=== PATIENT | male | born 1950 | race Caucasian/White ===

== ENCOUNTER 2018-09-09 08:58 | Emergency (ER) | payer MEDICARE, BC ==
--- OUTSIDE RECORDS SUMMARY | 2018-09-09 09:06 | XMS REPORT | Continuity of Care Document ---
:1950 External Reference #:[id number] Author Name Rossana Jessica Care Team Providers Name Role Phone Halie Sauceda MD Primary Care Physician Unavailable Payers Date Identification Numbers Payment Provider Subscriber Policy Number: [id number] Medicare Yassine S Deepthi PayID: [id number] [address] [place] [address] Expires: 2018 Policy Number: [id number] Medicare Yassine S Deepthi PayID: [id number] [address] [place] [address] Policy Number: [id number] [facility] Yassine S Deepthi PayID: [id number] [address] [place] [address] Effective: 2011 Policy Number: [id number] [employer] Rebekah Deepthi Expires: 2016 PayID: [id number] [address] [address] [place] [address] Expires: 2011 Policy Number: [id number] [employer] [place] Rebekah Deepthi PayID: [id number] [address] [address] [place] [address] Advance Directives Description No Information Available Problems Date Description Provider Status Onset: 09/17/2011 Pure hypercholesterolemia Js Pearson M.D. Active Onset: 09/17/2011 Coronary atherosclerosis Js Pearson M.D. Active Onset: 03/02/2018 Asthma Halie Sauceda M.D. Active Onset: 09/17/2011 Morbid obesity Js Pearson M.D. Resolved Resolved: 01/11/2017 Family History Date Family Member(s) Observation Comments Father due to hip () - April fell/ hip fracture of complications at age 92. Father Chronic Obstructive Pulmonary Disease (COPD) Mother Heart Disease ID in her 70s Mother Congestive Heart Failure (CHF) Siblings 1 sister - Breast with AAA at age 64 Cancer3 brothers alive and well 1 step brother First Brother Lupus First Brother Cancer Blood problem, being watched Second Brother Alive And Well Hip and back issues Third Brother Diabetes Type II Third Brother Hypertension Fourth Brother Aortic Aneurysm abdominal, at age 64 First Sister Breast Cancer First Sister Melanoma : (age Paternal Grandfather due to ID 65 Years) Social History Type Date Description Comments Sex Unknown Marital Status 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 Tobacco Use Start: Unknown End: Former Cigarette Smoker Quit 1976 Unknown Smoking Status Reviewed: 08/25/18 Former Cigarette Smoker Quit 1976 ETOH Use Currently consumes 1 glass red wine alcohol several times weekly Tobacco Use Start: Unknown End: Patient is a former Unknown smoker Exercise Type/Frequency cardio, racket ball 5-6 times weekly Allergies, Adverse Reactions, Alerts Date Description Reaction Status Severity Comments 02/23/2011 Vytorin nausea mylagias Active 05/18/2009 NKDA Inactive Medications Medication Date Status Form Strength Qnty SIG Indications Ordering Provider Shingrix 08/26/19 Active Suspension 50mcg/0.5 2unit 0.5ml Hermelindo 19 Rec ML s wilus JENNIFER Cuba cular, repeat 2-6 months later Lipitor 08/26/19 Active Tablets 20mg 30tab 1 every Js 19 s at night Lizet Pearson M.D. Proair 06/19/19 Active Aerosol 108(90Bas 8.500 2 puffs Saniya Respiclick 19 e) gm by mouth Hill, mcg/Act every M.D. 4-6 hours as needed Aspirin Active Chewtabs 81mg 1 po qd Unknown 00 Multi Complete Active Capsules daily Unknown 00 Breo Ellipta Active Aerosol 100-25mcg 90uni 1 puff Halie 00 / ts inhaled Cotton, daily M.D. Cialis Active Tablets 5mg 90tab 1 by Jeniffer 00 s mouth MD Misael every day Atorvastatin Active Tablets 20mg 90tab take 1 Halie Calcium 00 s tablet Cotton, at M.D. bedtime Amoxicillin/Clav 06/19/19 Hx Tablets 875-125mg 20tab 1 tab by J01.90 Saniya ulanate 19 - s mouth Hill, Potassium 06/29/19 twice a M.D. 19 day Prednisone 06/19/19 Hx Tablets 10mg QS take 3 Saniya 19 - tab Hill, 06/28/19 daily x M.D. 19 3 days then 2 tab daily x 3 days and then 1 tab daily x 3 days Mucinex 06/12/20 Hx Tablets ER 600mg 20tab twice a Christo 16 - 12HR s day as Tonio Pearza, 01/01/20 needed Santo,FACP 17 Zithromax Z-Gary 06/12/20 Hx Tablets 250mg 6tabs two by Christo 16 - mouth Tonio Peraza, 06/17/19 initiall MRody,FACP 17 y then one by mouth daily L'argenie 08/29/19 Hx 2-3 tabs Amanda 13 - daily Varn, N.P. 02/27/20 17 Lipitor 10/17/19 Hx Tablets 20mg 90tab one tab Js 12 - s by mouth Lizet Pearson, Unknown every M.D. night at bedtime Lipitor 10/08/19 Hx Tablets 40mg 90tab 1 po hs Js 12 - s Lizet Pearson, 10/17/19 M.D. 12 Lipitor Hx Tablets 40mg 90tab one tab Unknown 00 - s po qhs 10/08/19 12 Fish Oil Hx Capsules 1000mg 1 po qd Unknown - 08/29/19 13 CQ10 Hx Tablet 200mg 1 tab po Unknown 00 - daily 09/27/19 18 L-Arginine Hx Tablets 500mg 2 daily Unknown - 08/20/19 19 Proair Hx Aerosol 108(90Bas [place], Respiclick 00 - e) Fredo 06/19/19 mcg/Adam Carnes MD 19 Methylprednisolo Hx TBPK 4mg [place], ne Tasneem - Fredo 04/30/20 MD Trice 18 Immunizations CPT Code Status Date Vaccine Reaction Lot # [id number] Given 04/17/2018 Pneumococcal Conjugate Vaccine 13 Valent For Intramuscular Use 49059 Given 03/12/2018 Fluzone High Dose 99846 Given 02/26/2017 Influenza Virus Vaccine, No immediate [id number] Quadrivalent, Split, reaction...jh Preservative Free 65240 Given 05/07/2014 Pneumonia Vaccine 25461 Given 08/28/2012 Zoster (Zostavax) [id number] Given 09/16/1998 Tetanus And Diptheria (Td) For Adult Use Preservative Free Vital Signs Date Vital Result Comment 08/25/2018 9:27am Height 70 inches 5'10" Weight 218.75 lb Heart Rate 75 /min BP Systolic 128 mmHg BP Diastolic 79 mmHg Body Temperature 97.2 F O2 % BldC Oximetry 95 % BMI (Body Mass Index) 31.4 kg/m2 08/20/2018 3:39pm Height 70 inches 5'10" Weight 222.00 lb BP Systolic 140 mmHg large cuff BP Diastolic 90 mmHg large cuff BP Systolic Standing 140 mmHg just worked out BP Diastolic Standing 92 mmHg just worked out BP Systolic Lying Down 139 mmHg la repeat sitting BP Diastolic Lying Down 90 mmHg la repeat sitting Respiratory Rate 14 /min Pain Level 0 BMI (Body Mass Index) 31.9 kg/m2 06/19/2018 8:27am Height 70 inches 5'10" Weight 219.38 lb Heart Rate 84 /min BP Systolic 124 mmHg BP Diastolic 70 mmHg Body Temperature 97.7 F O2 % BldC Oximetry 95 % BMI (Body Mass Index) 31.5 kg/m2 03/03/2018 11:10am Height 70 inches 5'10" Weight 221.00 lb Heart Rate 70 /min BP Systolic Sitting 121 mmHg BP Diastolic Sitting 77 mmHg O2 % BldC Oximetry 96 % BMI (Body Mass Index) 31.7 kg/m2 01/03/2018 9:48am Weight 224.00 lb Heart Rate 78 /min BP Systolic Sitting 144 mmHg BP Diastolic Sitting 76 mmHg Body Temperature 97.4 F O2 % BldC Oximetry 97 % 09/27/2017 8:43am Weight 223.00 lb Heart Rate 69 /min BP Systolic Sitting 130 mmHg BP Diastolic Sitting 95 mmHg Body Temperature 97.2 F O2 % BldC Oximetry 95 % 05/22/2017 8:57am Heart Rate 78 /min Respiratory Rate 18 /min Body Temperature 98.6 F 05/14/2017 10:44am Heart Rate 76 /min BP Systolic 150 mmHg BP Diastolic 100 mmHg Respiratory Rate 16 /min Body Temperature 98.3 F 05/06/2017 2:49pm Height 70 inches 5'10" Weight 213.00 lb Heart Rate 76 /min BP Systolic 138 mmHg BP Diastolic 90 mmHg Respiratory Rate 18 /min Body Temperature 97.8 F BMI (Body Mass Index) 30.6 kg/m2 03/06/2017 11:08am Height 70 inches 5'10" Weight 219.50 lb with shoes Heart Rate 68 /min BP Systolic Sitting 124 mmHg LA reg cuff BP Diastolic Sitting 82 mmHg LA reg cuff BMI (Body Mass Index) 31.5 kg/m2 Ejection Fraction 55% - 60% echo 01/24/17 02/26/2017 11:22am Height 70 inches 5'10" Weight 210.50 lb Heart Rate 68 /min BP Systolic 124 mmHg BP Diastolic 84 mmHg Body Temperature 97.9 F O2 % BldC Oximetry 97 % BMI (Body Mass Index) 30.2 kg/m2 01/01/2017 12:59pm Height 70 inches 5'10" Weight 217.00 lb w/o shoes Heart Rate 68 /min BP Systolic Sitting 144 mmHg LA lrg cuff BP Diastolic Sitting 84 mmHg LA lrg cuff BP Systolic Standing 139 mmHg la repeat sit BP Diastolic Standing 82 mmHg la repeat sit BMI (Body Mass Index) 31.1 kg/m2 Ejection Fraction 53% NLM 10/12/08 06/12/2016 3:15pm Weight 227.00 lb with shoes Heart Rate 103 /min BP Systolic Sitting 134 mmHg BP Diastolic Sitting 76 mmHg Body Temperature 97.4 F O2 % BldC Oximetry 98 % 11/09/2014 2:06pm Height 69 inches 5'9" Weight 216.00 lb w/o shoes Heart Rate 94 /min reg BP Systolic Sitting 108 mmHg Ra, lg cuff BP Diastolic Sitting 78 mmHg Ra, lg cuff BP Systolic Standing 112 mmHg Ra BP Diastolic Standing 80 mmHg Ra Respiratory Rate 18 /min BMI (Body Mass Index) 31.9 kg/m2 11/27/2012 11:37am Height 69 inches 5'9" Weight 211.00 lb Heart Rate 64 /min BP Systolic Sitting 124 mmHg BP Diastolic Sitting 80 mmHg BMI (Body Mass Index) 31.2 kg/m2 08/28/2012 10:08am Height 69 inches 5'9" Weight 214.00 lb Heart Rate 70 /min BP Systolic Sitting 126 mmHg BP Diastolic Sitting 60 mmHg BMI (Body Mass Index) 31.6 kg/m2 09/17/2011 1:52pm Height 70 inches 5'10" Weight 230.00 lb Heart Rate 72 /min BP Systolic 130 mmHg BP Diastolic 82 mmHg Respiratory Rate 16 /min BMI (Body Mass Index) 33.0 kg/m2 10/12/2010 8:52am Height 70 inches 5'10" Weight 230.00 lb Heart Rate 69 /min BP Systolic Sitting 138 mmHg BP Diastolic Sitting 76 mmHg BMI (Body Mass Index) 33.0 kg/m2 05/18/2009 10:15am Height 70 inches 5'10" Weight 234.00 lb Heart Rate 65 /min BP Systolic Sitting 140 mmHg BP Diastolic Sitting 80 mmHg BMI (Body Mass Index) 33.6 kg/m2 Results Test Date Facility Test Result H/L Range Note Laboratory test 05/14/2017 [facility] Surgical SEE RESULT [address] [place] [address] [phone] Laboratory test 04/11/2017 [facility] PSA Screening 1.288 ng/mL N 0-4.000 2 [place] [address] [phone] Basic Metabolic 04/11/2017 [facility] Sodium 138 mmol/L N 133- 145 [place] [address] [phone] Potassium 4.3 mmol/L N 3.5-5.0 Chloride 105 mmol/L N 101-111 Co2 Carbon Dioxide 29 mmol/L N 22-32 Anion Gap 4 mmol/L N 2-11 Glucose 103 mg/dL High 70-100 Blood Urea Nitrogen 18 mg/dL N 6-24 Creatinine 0.84 mg/dL N 0.67-1.17 BUN/Creatinine Ratio 21.4 High 8-20 Calcium 9.3 mg/dL N 8.6-10.3 Egfr Non- 90.9 N >60 Egfr 116.9 N >60 3 Comp Metabolic Panel 09/20/2011 [facility] Sodium 133 mmol/L Low 135-145 [address] [place] [address] [phone] Potassium 4.5 mmol/L 3.5-5.0 Chloride 100 mmol/L Low 101-111 Co2 (Carbon Dioxide) 27.0 mmol/L 22-32 Anion Gap 6.0 mmol/L 2-11 4 Glucose 98 mg/dL 70-100 BUN 16 mg/dL 6-24 Creatinine 0.9 mg/dL 0.50-1.40 One Over Creatinine 1.11 BUN/Creatinine Ratio 17.8 8-20 Calcium 8.9 mg/dL 8.1-9.9 Total Protein 6.8 GM/DL 6.2-8.1 Albumin 4.2 GM/DL 3.2-5.2 Globulin 2.6 GM/DL 2-4 Albumin/Globulin Ratio 1.6 1-3 Bilirubin Total 0.7 mg/dL 0.4-1.5 5 Alkaline Phosphatase 43 U/L 39-117 Alt (SGPT) 34 U/L 17-63 Ast (Sgot) 28 U/L 12-42 eGFR Non- 85.2 > 60 eGFR 109.6 > 60 6 Lipid Panel - 09/20/2011 [facility] CPK (Creatine 204 U/L High 0-[address] Kinase) [place] [address] [phone] Lipid Profile 09/20/2011 [facility] Triglyceride 237 mg/dL High 40-200 (Trig/Chol/HD [address] L) [place] [address] [phone] Cholesterol 188 mg/dL Less Than 200 7 High Density Lipoprotein 40 mg/dL 40-60 8 Cholesterol/HDL Ratio 4.70 AVERAGE 1-4.97 Low Density Lipoprotein 101 mg/dL High Less Than 100 9 CBC Auto Diff 09/20/2011 [facility] White Blood 4.6 CUMM Low 4.8-10.[address] [place] [address] [phone] Red Cell Count 4.60 CUMM 4.6-6.2 Hemoglobin 14.6 g/dL 14.0-18.0 Hematocrit 41 % Low 42-52 Mean Corpuscular Volume 89 um3 80-94 Mean Corpuscular Hemoglob 32 pg High 27-31 Mean Corpuscular HGB Cone 36 g/dL 32-36 Redcell Distribution WDTH 13 % 10.5-15 Platelet Count 197 CUMM 150-450 Mean Platelet Volume 8.1 um3 7.4-10.4 Gran % 54.5 % 38-83 Lymph % 34.3 % 25-47 Mononuclear % 9.2 % High 1-9 Eosinophil % 1.7 % 0-6 Basophil % 0.3 % 0-2 Abs Lymphs 1.6 1.0-4.8 Abs Mononuclear 0.4 0-0.8 Absolute Neutrophil Count 2.5 1.5-7.7 Abs Eosinophils 0.1 0-0.6 Abs Basophils 0 0-0.2 Laboratory test 09/20/2011 [facility] TSH 2.41 MIU/ML 0.34- 5.[address] [place] [address] [phone] CBC Auto Diff 10/25/2010 [facility] White Blood 5.3 CUMM 4.8- 10.[address] [place] [address] [phone] Red Cell Count 4.64 CUMM 4.6-6.2 Hemoglobin 14.3 g/dL 14.0-18.0 Hematocrit 42 % 42-52 Mean Corpuscular Volume 90 um3 80-94 Mean Corpuscular Hemoglob 31 pg 27-31 Mean Corpuscular HGB Cone 34 g/dL 32-36 Redcell Distribution WDTH 13 % 10.5-15 Platelet Count 197 CUMM 150-450 Mean Platelet Volume 8.0 um3 7.4-10.4 Gran % 58.6 % 38-83 Lymph % 31.7 % 25-47 Mononuclear % 7.5 % 1-9 Eosinophil % 1.8 % 0-6 Basophil % 0.4 % 0-2 Abs Lymphs 1.7 1.0-4.8 Abs Mononuclear 0.4 0-0.8 Absolute Neutrophil Count 3.1 1.5-7.7 Abs Eosinophils 0.1 0-0.6 Abs Basophils 0 0-0.2 Comp Metabolic Panel 10/25/2010 [facility] Sodium 138 mmol/L 135-[address] [place] [address] [phone] Potassium 4.2 mmol/L 3.5-5.0 Chloride 106 mmol/L 101-111 Co2 (Carbon Dioxide) 23.0 mmol/L 22-32 Anion Gap 9.0 mmol/L 2-11 10 Glucose 89 mg/dL 70-100 BUN 14 mg/dL 6-24 Creatinine 0.90 mg/dL 0.50-1.40 One Over Creatinine 1.10 BUN/Creatinine Ratio 15.6 8-20 Calcium 9.0 mg/dL 8.1-9.9 Total Protein 6.4 GM/DL 6.2-8.1 Albumin 4.2 GM/DL 3.2-5.2 Globulin 2.2 GM/DL 2-4 Albumin/Globulin Ratio 1.9 1-3 Bilirubin Total 1.1 mg/dL 0.4-1.5 11 Alkaline Phosphatase 46 U/L 39-117 Alt (SGPT) 31 U/L 17-63 Ast (Sgot) 30 U/L 12-42 eGFR Non- 85.5 > 60 eGFR 110.0 > 60 12 Lipid Profile 10/25/2010 [facility] Triglyceride 284 mg/dL High 40-200 (Trig/Chol/HDL) [address] [place] [address] [phone] Cholesterol 170 mg/dL Less Than 200 13 High Density Lipoprotein 41 mg/dL 40-60 14 Cholesterol/HDL Ratio 4.15 AVERAGE 1-4.97 Low Density Lipoprotein 72 mg/dL Less Than 100 15 Laboratory test 10/25/2010 [facility] TSH 2.27 MIU/ML 0.34- 5.60 finding [address] [place] [address] [phone] CBC With Manual 10/18/2008 [facility] White Blood 6.8 CUMM 4.8-10.8 [address] [place] [address] [phone] Red Cell Count 4.66 CUMM 4.6-6.2 Hemoglobin 14.4 g/dL 14.0-18.0 Hematocrit 41 % Low 42-52 Mean Corpuscular Volume 88 um3 80-94 Mean Corpuscular Hemoglob 31 pg 27-31 Mean Corpuscular HGB Cone 35 g/dL 32-36 Redcell Distribution WDTH 13 % 10.5-15 Platelet Count 220 CUMM 150-450 Mean Platelet Volume 7.1 um3 Low 7.4-10.4 Polysegmented Neutrophil 78 % 38-83 Band Neutrophil 4 % 0-8 Lymphocyte 11 % Low 25-47 Monocyte 5 % 0-13 Eosenophil 1 % 0-6 Basophil 1 % 0-2 Absolute Neutrophil Count 5.5 Anisocytosis SLIGHT Protime 10/18/2008 [facility] Protime 11.4 10.9-13.3 [address] [place] [address] [phone] Inr 0.89 17 Laboratory test 10/18/2008 [facility] PTT (Aptt) 23.6 20.1- 28.2 18 finding [address] [place] [address] [phone] Comp Metabolic 10/18/2008 [facility] Sodium 134 mmol/L Low 135 -145 Panel [address] [place] [address] [phone] Potassium 4.3 mmol/L 3.5-5.0 Chloride 101 mmol/L 101-111 Co2 (Carbon Dioxide) 25.0 mmol/L 22-32 Anion Gap 8.0 mmol/L 2-11 19 Glucose 100 mg/dL 70-100 20 BUN 12 mg/dL 6-24 Creatinine 0.90 mg/dL 0.50-1.40 One Over Creatinine 1.10 BUN/Creatinine Ratio 13.3 8-20 Calcium 9.1 mg/dL 8.1-9.9 21 Total Protein 6.0 GM/DL Low 6.2-8.1 Albumin 3.8 GM/DL 3.2-5.2 Globulin 2.2 GM/DL 2-4 Albumin/Globulin Ratio 1.7 1-3 Bilirubin Total 0.7 mg/dL 0.4-1.5 Alkaline Phosphatase 53 U/L 39-117 Alt (SGPT) 33 U/L 17-63 Ast (Sgot) 27 U/L 12-42 1 SEE RESULT BELOW Name: YASSINE HACKETT : [address]: Ivelisse Lindquist MD Acct: [id number] Unit: [id number] AGE: 66 Location: [facility] Re05/14/17 SEX: M Status: REG REF SPEC: [id number] RACH: 05/14/17-1408 [facility] DR: Ivelisse Lindquist MD REQ: [id number] RECD: 05/14/17 STATUS: SOUT _ ORDERED: LEVEL 3 COMMENTS: [id number] FINAL DIAGNOSIS Posterior neck, excision: -- Lipoma. CLINICAL HISTORY No history given PRE-OPERATIVE DIAGNOSIS GROSS DESCRIPTION The specimen is received in formalin labeled, Posterior Neck Mass, and consists of a 2.0 x 1.9 x 1.0 cm yellow-forbes irregular shaggy rubbery adipose tissue fragment. The cut surface consists of pale yellow lobulated adipose tissue with a small amount of diaz- white fibrous tissue. The specimen is inked, serially sectioned and entirely submitted in three cassettes. Signed (signature on file) Kinjal Neil MD 07/03 1128 END OF REPORT * ML=Testing performed at Main Lab DEPARTMENT OF PATHOLOGY, [address] [place] [address] Kar Medina M.D. Director [facility] # [id number] 2 Serum levels of PSA measured using the Arti Wavestream DXI Hybritech immunoassay should not be interpreted as absolute evidence of the presence or absence of disease. The PSA value should be used in conjunction with other pertinent clinical diagnostic procedures. The values obtained with different assay methods or kits cannot be used interchangeably. 3 Because ethnic data is not always readily available, this report includes an eGFR for both -Americans and non- Americans. The National Kidney Disease Education Program (NKDEP) does not endorse the use of the MDRD equation for patients that are not between the ages of 18 and 70, are , have extremes of body size, muscle mass, or nutritional status, or are non- or non-. According to the National Kidney Foundation, irrespective of diagnosis, the stage of the disease is based on the level of kidney function: Stage Description GFR(mL/min/1.73 m(2)) 1 Kidney damage with normal or decreased GFR 90 2 Kidney damage with mild decrease in GFR 60-89 3 Moderate decrease in GFR 30-59 4 Severe decrease in GFR 15-29 5 Kidney failure <15 (or dialysis) 4 Anion gap measurement may be of limited value in the presence of any alkalosis, especially in a combined acid base disorder. . 5 A metabolite of Naproxen, O-desmethylnaproxen, has been shown to interfere with the Jendrassik-Ramírez method for measuring total bilirubin. Samples from patients who have taken Naproxen have shown spurious elevation in total bilirubin levels. 6 Because ethnic data is not always readily available, this report includes an eGFR for both -Americans and non- Americans. The National Kidney Disease Education Program (NKDEP) does not endorse the use of the MDRD equation for patients that are not between the ages of 18 and 70, are , have extremes of body size, muscle mass, or nutritional status, or are non- or non-. According to the National Kidney Foundation, irrespective of diagnosis, the stage of the disease is based on the level of kidney function: Stage Description GFR(mL/min/1.73 m(2)) 1 Kidney damage with normal or decreased GFR 90 2 Kidney damage with mild decrease in GFR 60-89 3 Moderate decrease in GFR 30-59 4 Severe decrease in GFR 15-29 5 Kidney failure <15 (or dialysis) 7 CHOLESTEROL INTERPRETATION: Desirable: Less than 200 MG/DL Borderline-High Risk: 200-239 MG/DL High-Risk: 240 MG/DL and over 8 HDL INTERPRETATION: Undesirable: High Risk: Less than 40 MG/DL Desirable: Low Risk: Greater than 60 MG/DL 9 LDL INTERPRETATION: Low Risk Optimal Level: LDL Less than 100 MG/DL Near or Above Optimal: LDL 100-129 MG/DL Borderline High Risk: LDL 130-159 MG/DL High Risk: LDL 160-189 MG/DL Very High Risk: LDL Greater than 189 MG/DL 10 Anion gap measurement may be of limited value in the presence of any alkalosis, especially in a combined acid base disorder. . 11 A metabolite of Naproxen, O-desmethylnaproxen, has been shown to interfere with the Jendrassik-Ramírez method for measuring total bilirubin. Samples from patients who have taken Naproxen have shown spurious elevation in total bilirubin levels. 12 Because ethnic data is not always readily available, this report includes an eGFR for both -Americans and non- Americans. The National Kidney Disease Education Program (NKDEP) does not endorse the use of the MDRD equation for patients that are not between the ages of 18 and 70, are , have extremes of body size, muscle mass, or nutritional status, or are non- or non-. According to the National Kidney Foundation, irrespective of diagnosis, the stage of the disease is based on the level of kidney function: Stage Description GFR(mL/min/1.73 m(2)) 1 Kidney damage with normal or decreased GFR 90 2 Kidney damage with mild decrease in GFR 60-89 3 Moderate decrease in GFR 30-59 4 Severe decrease in GFR 15-29 5 Kidney failure <15 (or dialysis) 13 CHOLESTEROL INTERPRETATION: Desirable: Less than 200 MG/DL Borderline-High Risk: 200-239 MG/DL High-Risk: 240 MG/DL and over 14 HDL INTERPRETATION: Undesirable: High Risk: Less than 40 MG/DL Desirable: Low Risk: Greater than 60 MG/DL 15 LDL INTERPRETATION: Low Risk Optimal Level: LDL Less than 100 MG/DL Near or Above Optimal: LDL 100-129 MG/DL Borderline High Risk: LDL 130-159 MG/DL High Risk: LDL 160-189 MG/DL Very High Risk: LDL Greater than 189 MG/DL 16 FAX RESULTS TO [facility] [employer] OPERATOR AT FAX NUMBER [phone] 17 [place] VALUE=2.01 ( OF 05/23/07 Recommended INR for Patients on Oral Anticoagulants Prophylaxis 2.0 - 3.0 Treatment of thrombosis 2.0 - 3.0 Prevention of embolism 2.0 - 3.0 Prevention of embolism from prosthetic heart valves 2.5 - 3.5 18 PLEASE NOTE NEW REFERENCE RANGE EFFECTIVE 07. 19 Anion gap measurement may be of limited value in the presence of any alkalosis, especially in a combined acid base disorder. . 20 Note change in reference range as of 02/05/08. The change was based on recommendations from the [place] [employer]. 21 Please note change in reference range effective 07 . Procedures Date Code Description Status 08/20/2018 66437 EKG Tracing & Interpretation Completed 07/03/2018 602233466 Diabetic Retinal Eye Exam Completed 05/14/2017 86719 Exc Tumors/Soft Tissue Neck Subcutaneous Completed 03/06/2017 27336 EKG Tracing & Interpretation Completed 01/24/2017 25263 ECHO Transthoracic, Real-Time 2D With Doppler And Completed Color Flow 01/11/2017 02770 Stress Test Supervsn W/Out I/R Completed 01/11/2017 72307 Treadmill Interp/Report Only Completed 01/01/2017 61475 EKG Tracing & Interpretation Completed 05/27/2015 63751116 Colonoscopy Completed 11/09/2014 75824 EKG Tracing & Interpretation Completed 11/27/2012 19568 EKG Tracing & Interpretation Completed 09/17/2011 67742 EKG Tracing & Interpretation Completed 02/23/2011 22058 ECHO Stress Test Incl Perf Contiuous ekg Monitoring Completed W/Phys Superv 10/12/2010 05844 EKG Tracing & Interpretation Completed 05/18/2009 29946 EKG Tracing & Interpretation Completed 10/12/2008 09190 Treadmill Interp/Report Only Completed 10/12/2008 51784 Stress Test Supervsn W/Out I/R Completed 05/19/2008 57899 ECHO/Stress Completed 05/19/2008 39856 ECHO/Stress Completed 05/19/2008 73784 Stress Test Completed 11/09/2005 16064 EKG, Interpretation Only Completed Encounters Type Date Location Provider Dx Diagnosis Office Visit 08/20/2018 [facility]. E78.5 Hyperlipidemia , 3:40p Santo Pearson unspecified R03.0 Elevated blood-pressure reading, w/o diagnosis of htn I25.10 Athscl heart disease of [place] coronary artery w/o ang pctrs Office Visit 06/19/2018 8:30a [facility] Internal Saniya J45.31 Mild persistent Medicine - [place] asthma with [place] (acute) exacerbation J01.90 Acute sinusitis, unspecified Office Visit 01/03/2018 9:40a [facility] Internal Halie Sauceda, M25.551 Pain in Medicine - M.D. right hip [place] H92.01 Otalgia, right ear E78.5 Hyperlipidemia, unspecified Office Visit 09/27/2017 8:40a [facility] Internal Hermelindo Cuba NP I83.812 Varicose veins Medicine - of left lower [place] extremity with pain Office Visit 05/06/2017 3:00p Surgical Ivelisse Kelvin D17.0 [facility] MD Lexa neoplm of skin, subcu of head, face and neck Office Visit 03/06/2017 11:20a [facility] Js Hinds I25.10 Athscl heart Santo Pearson disease of [place] coronary artery w/o fina bryantrs R06.00 Dyspnea, unspecified E78.00 Pure hypercholesterolemia, unspecified Z01.810 Encounter for preprocedural cardiovascular examination Office 01/01/2017 Giuseppe Hinds E78.00 Pure Visit 1:20p Cardiology Santo Pearson hypercholesterolemia, unspecified I25.10 Athscl heart disease of [place] coronary artery w/o ang pctrs R06.02 Shortness of breath Office Visit 06/12/2016 3:20p [facility] Internal Christo Elizalde J20.9 Acute bronchitis, Medicine - Santo Peraza,FACP unspecified [place] E78.00 Pure hypercholesterolemia, unspecified Office 11/09/2014 Adán Hinds 272.0 Hypercholesterolemia Pure Visit 2:20p Cardiology Nicole Pearson M.D. Dry Heat Room Attendant 414.01 Coronary Atherosclerosis [place] Office 11/27/2012 Giuseppe Hinds 272.0 Hypercholesterolemia Pure Visit 11:40a Cardiology Mauser, M.D. 278.00 Obesity Unspec 414.01 Coronary Atherosclerosis [place] Office 08/28/2012 [facility] Internal Amanda V04.89 Need For Prophylactic Visit 10:20a Medicine - Martina NDesmond Vaccination & [place] Inoculation Other Virus Office 09/17/2011 Giuseppe Hinds 272.0 Hypercholesterolemia Visit 2:00p Cardiology ELIZABETH Pearson M.D. Pure [facility] 278.01 Obesity Morbid 414.0 Coronary Atherosclerosis Office 10/12/2010 [place] Js Hinds 272.0 Hypercholesterolemia Pure Visit 9:00a Cardiology Santo Pearson 278.01 Obesity Morbid 786.50 Pain Chest Unspec 414.0 Coronary Atherosclerosis Office Visit 05/18/2009 10:00a [facility] Js Hinds 786.50 Pain Chest Santo Pearson Unspec 272.0 Hypercholesterolemia Pure 278.01 Obesity Morbid 414.0 Coronary Atherosclerosis Office Visit 10/12/2008 11:00a [place] Randa Hinds 786.50 Pain Chest Santo Pearson Unspec 272.0 Hypercholesterolemia Pure 278.01 Obesity Morbid Plan of Treatment 08/25/2018 - Hermelindo Cuba, NPZ01.818 Encounter for other preprocedural examinationNew Labs:CBC Auto Diff, Ordered: 08/25/18Basic Metabolic Panel, Ordered: 08/25/18Urine Culture And Sensitivities, Ordered: 08/25/18Comments:As long as your labs are normal I do not see any contraindications to your surgery.You should avoid aspirin, NSAIDs (ibuprofen, Motrin, aleve) and supplements 7 days prior to the procedure.M25.562 Pain in left kneeI25.10 Atherosclerotic heart disease of [place] coronary artery withJ45.30 Mild persistent asthma, uncomplicated
--- OUTSIDE RECORDS SUMMARY | 2018-09-09 09:06 | XMS REPORT | Continuity of Care Document ---
:1950 External Reference #:[id number] Author Name Mag Citlaligie Care Team Providers Name Role Phone Halie Sauceda MD Primary Care Physician Unavailable Payers Date Identification Numbers Payment Provider Subscriber Policy Number: [id number] Medicare Yassine S Deepthi PayID: [id number] [address] [place] [address] Expires: 2018 Policy Number: [id number] Medicare Yassine S Deepthi PayID: [id number] [address] [place] [address] Policy Number: [id number] [facility] Yassine S Deepthi PayID: [id number] [address] [place] [address] Effective: 2011 Policy Number: [id number] [employer] Rebekah Deepthi Expires: 2016 PayID: [id number] [address] [address] CULL[place] Martinez [address] Expires: 2011 Policy Number: [id number] [employer] [place] Rebekah Deepthi PayID: [id number] [address] [address] MichelleCULLEN britton [address] Advance Directives Description No Information Available Problems Date Description Provider Status Onset: 09/17/2011 Pure hypercholesterolemia Js Pearson M.D. Active Onset: 09/17/2011 Coronary atherosclerosis Js Pearson M.D. Active Onset: 03/02/2018 Asthma Halie Sauceda M.D. Active Onset: 09/17/2011 Morbid obesity Js Pearson M.D. Resolved Resolved: 01/11/2017 Family History Date Family Member(s) Observation Comments Father Chronic Obstructive Pulmonary Disease (COPD) Mother Heart Disease [place] in her 70s Mother Congestive Heart Failure (CHF) Siblings 1 sister - Breast Cancer3 with AAA at age 64 brothers alive and well 1 step brother First Brother Lupus First Brother Cancer Blood problem, being watched Second Brother Alive And Well Hip and back issues Third Brother Diabetes Type II Third Brother Hypertension Fourth Brother Aortic Aneurysm abdominal, at age 64 First Sister Breast Cancer First Sister Melanoma : (age 65 Paternal Grandfather due to [place] Years) Social History Type Date Description Comments Sex Unknown Marital Status 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 Tobacco Use Start: Unknown End: Former Cigarette Smoker Quit 1976 Unknown Smoking Status Reviewed: 06/19/18 Former Cigarette Smoker Quit 1976 ETOH Use Currently consumes 1 glass red wine alcohol daily Tobacco Use Start: Unknown End: Patient is a former Unknown smoker Exercise Type/Frequency cardio, racket ball 5-6 times weekly Allergies, Adverse Reactions, Alerts Date Description Reaction Status Severity Comments 02/23/2011 Vytorin nausea mylagias Active 05/18/2009 NKDA Inactive Medications Medication Date Status Form Strength Qnty SIG Indications Ordering Provider Proair 06/19/19 Active Aerosol 108(90Bas 8.500 2 puffs J45.31 Saniya Respiclick 19 e) gm by mouth Hill, mcg/Act every 4-6 M.D. hours as needed Aspirin Active Chewtabs 81mg 1 po qd Unknown 00 Multi Complete Active Capsules daily Unknown 00 Breo Ellipta Active Aerosol 100-25mcg 90uni 1 puff Halie 00 /Inh ts inhaled Cotton, daily M.D. Cialis Active Tablets 5mg 90tab 1 by Jeniffer 00 s mouth MD Misael every day Atorvastatin Active Tablets 20mg 90tab take 1 Halie Calcium 00 s tablet at Cotton, bedtime M.D. Amoxicillin/Clav 06/19/19 Hx Tablets 875-125mg 20tab 1 tab by J01.90 Saniya ulanate 19 - s mouth Hill, Potassium 06/29/19 twice a M.D. 19 day Prednisone 06/19/19 Hx Tablets 10mg QS take 3 J45.31 Saniya 19 - tab daily Hill, 06/28/19 x 3 days M.D. 19 then 2 tab daily x 3 days and then 1 tab daily x 3 days Mucinex 06/12/20 Hx Tablets 600mg 20tab twice a Christo 16 - ER 12HR s day as Tonio Peraza, 01/01/20 needed Santo,FACP 17 Zithromax Z-Gary 06/12/20 Hx Tablets 250mg 6tabs two by Christo 16 - mouth Tonio Peraza, 06/17/19 initially M.Tonio,FACP 17 then one by mouth daily L'argenie 08/29/19 [...] [place], Respiclick 00 - e) Fredo 06/19/19 mcg/Act MD Trice 19 Methylprednisolo Hx TBPK 4mg [place], ne 00 - Fredo 04/30/20 MD Trice 18 Immunizations CPT Code Status Date Vaccine Reaction Lot # [id number] Given 04/17/2018 Pneumococcal Conjugate Vaccine 13 Valent For Intramuscular Use 96029 Given 03/12/2018 Fluzone High Dose 85864 Given 02/26/2017 Influenza Virus Vaccine, No immediate [id number] Quadrivalent, Split, reaction...jh Preservative Free 25516 Given 05/07/2014 Pneumonia Vaccine 69459 Given 08/28/2012 Zoster (Zostavax) [id number] 13921 Given 09/16/1998 Tetanus And Diptheria (Td) For Adult Use Preservative Free Vital Signs Date Vital Result Comment 08/20/2018 3:39pm Height 70 inches 5'10" Weight [...] Result H/L Range Note Laboratory test 05/14/2017 [facility] Surgical SEE RESULT [address] [place] [address] [phone] Laboratory test 04/11/2017 [facility] PSA Screening 1.288 ng/mL N 0-4.000 [address] [place] [address] [phone] Basic Metabolic 04/11/2017 [facility] Sodium 138 mmol/L N 133- [address] [place] [address] [phone] Potassium 4.3 mmol/L N 3.5-5.0 Chloride 105 mmol/L N 101-111 Co2 Carbon Dioxide 29 mmol/L N 22-32 Anion Gap 4 mmol/L N 2-11 Glucose 103 mg/dL High 70-100 Blood Urea Nitrogen 18 mg/dL N 6-24 Creatinine 0.84 mg/dL N 0.67-1.17 BUN/Creatinine Ratio 21.4 High 8-20 Calcium 9.3 mg/dL N 8.6-10.3 Egfr Non- 90.9 N >60 Egfr 116.9 N >60 3 CBC Auto Diff 09/20/2011 [facility] White Blood 4.6 CUMM Low 4.8-10.[address] [place] [address] [phone] Red Cell Count 4.60 CUMM 4.6-6.2 Hemoglobin [...] Abs Basophils 0 0-0.2 Laboratory test 09/20/2011 [facility] TSH 2.41 0.34-5.[address] MIU/[place] [address] [phone] Lipid Profile 09/20/2011 [facility] Triglyceride 237 mg/dL High 40-200 (Trig/Chol/HDL) [address] [place] [address] [phone] Cholesterol 188 mg/dL Less Than 200 4 High Density Lipoprotein 40 mg/dL 40-60 5 Cholesterol/HDL Ratio 4.70 AVERAGE 1-4.97 Low Density Lipoprotein 101 mg/dL High Less Than 100 6 Lipid Panel - 09/20/2011 [facility] CPK (Creatine 204 U/L High 0-[address] Kinase) [place] [address] [phone] Comp Metabolic 09/20/2011 [facility] Sodium 133 Low 135-[address] mmol/[place] [address] [phone] Potassium 4.5 mmol/L 3.5-5.0 Chloride 100 mmol/L Low 101-111 Co2 (Carbon Dioxide) 27.0 mmol/L 22-32 Anion Gap 6.0 mmol/L 2-11 7 Glucose 98 mg/dL 70-100 BUN 16 mg/dL 6-24 Creatinine 0.9 mg/dL 0.50-1.40 One Over Creatinine 1.11 BUN/Creatinine Ratio 17.8 8-20 Calcium 8.9 mg/dL 8.1-9.9 Total Protein 6.8 GM/DL 6.2-8.1 Albumin 4.2 GM/DL 3.2-5.2 Globulin 2.6 GM/DL 2-4 Albumin/Globulin Ratio 1.6 1-3 Bilirubin Total 0.7 mg/dL 0.4-1.5 8 Alkaline Phosphatase 43 U/L 39-117 Alt (SGPT) 34 U/L 17-63 Ast (Sgot) 28 U/L 12-42 eGFR Non- 85.2 > 60 eGFR 109.6 > 60 9 Laboratory test 10/25/2010 [facility] TSH 2.27 0.34-5.60 finding 101 MIU[address] [address] [phone] Lipid Profile 10/25/2010 [facility] Triglyceride 284 mg/dL High 40-200 (Trig/Chol/HDL) [address] [place] [address] [phone] Cholesterol 170 mg/dL Less Than 200 10 High Density Lipoprotein 41 mg/dL 40-60 11 Cholesterol/HDL Ratio 4.15 AVERAGE 1-4.97 Low Density Lipoprotein 72 mg/dL Less Than 100 12 Comp Metabolic Panel 10/25/2010 [facility] Sodium 138 mmol/L 135-[address] [place] [address] [phone] Potassium 4.2 mmol/L 3.5-5.0 Chloride 106 mmol/L 101-111 Co2 (Carbon Dioxide) 23.0 mmol/L 22-32 Anion Gap 9.0 mmol/L 2-11 13 Glucose 89 mg/dL 70-100 BUN 14 mg/dL 6-24 Creatinine 0.90 mg/dL 0.50-1.40 One Over Creatinine 1.10 BUN/Creatinine Ratio 15.6 8-20 Calcium 9.0 mg/dL 8.1-9.9 Total Protein 6.4 GM/DL 6.2-8.1 Albumin 4.2 GM/DL 3.2-5.2 Globulin 2.2 GM/DL 2-4 Albumin/Globulin Ratio 1.9 1-3 Bilirubin Total 1.1 mg/dL 0.4-1.5 14 Alkaline Phosphatase 46 U/L 39-117 Alt (SGPT) 31 U/L 17-63 Ast (Sgot) 30 U/L 12-42 eGFR Non- 85.5 > 60 eGFR 110.0 > 60 15 CBC Auto Diff 10/25/2010 [facility] White Blood 5.3 CUMM 4.8- 10.[address] [place] [address] [phone] Red Cell Count 4.64 CUMM 4.6-6.2 Hemoglobin [...] Eosinophils 0.1 0-0.6 Abs Basophils 0 0-0.2 CBC With Manual 10/18/2008 [facility] White Blood 6.8 CUMM 4.8-10.[address] [place] [address] [phone] Red Cell Count 4.66 CUMM 4.6-6.2 Hemoglobin [...] Neutrophil Count 5.5 Anisocytosis SLIGHT Protime 10/18/2008 [facility] Protime 11.4 10.9-13.[address] [place] [address] [phone] Inr 0.89 17 Laboratory test 10/18/2008 [facility] PTT (Aptt) 23.6 20.1- 28.2 [address] [place] [address] [phone] Comp Metabolic 10/18/2008 [facility] Sodium 134 mmol/L Low 135 -[address] [place] [address] [phone] Potassium 4.3 mmol/L 3.5-5.0 Chloride 101 mmol/L [...] [address]: Ivelisse Lindquist MD Acct: [id number] Unit: [id number] AGE: 66 Location: [facility] Re05/14/17 SEX: M Status: REG REF SPEC: [id number] RACH: 05/14/17-[address]: Ivelisse Lindquist MD REQ: [id number] RECD: 11 STATUS: SOUT _ ORDERED: LEVEL 3 COMMENTS: [id number] FINAL DIAGNOSIS Posterior neck, excision: -- Lipoma. [...] performed at Main Lab DEPARTMENT OF PATHOLOGY, [address] [place] [address] Kar Medina M.D. Director [facility] # [id number] 2 Serum levels of PSA measured using the Arti Michael DXI Hybritech immunoassay should not be interpreted [...] 5 Kidney failure <15 (or dialysis) 4 CHOLESTEROL INTERPRETATION: Desirable: Less than 200 MG/DL Borderline-High Risk: 200-239 MG/DL High-Risk: 240 MG/DL and over 5 HDL INTERPRETATION: Undesirable: High Risk: Less than 40 MG/DL Desirable: Low Risk: Greater than 60 MG/DL 6 LDL INTERPRETATION: Low Risk Optimal Level: LDL Less than 100 MG/DL Near or Above Optimal: LDL 100-129 MG/DL Borderline High Risk: LDL 130-159 MG/DL High Risk: LDL 160-189 MG/DL Very High Risk: LDL Greater than 189 MG/DL 7 Anion gap measurement may be of limited value in the presence of any alkalosis, especially in a combined acid base disorder. . 8 A metabolite of Naproxen, O-desmethylnaproxen, has been shown to interfere with the Jendrassik-Ramírez method for measuring total bilirubin. Samples from patients who have taken Naproxen have shown spurious elevation in total bilirubin levels. 9 Because ethnic data is not always readily [...] 15-29 5 Kidney failure <15 (or dialysis) 10 CHOLESTEROL INTERPRETATION: Desirable: Less than 200 MG/DL Borderline-High Risk: 200-239 MG/DL High-Risk: 240 MG/DL and over 11 HDL INTERPRETATION: Undesirable: High Risk: Less than 40 MG/DL Desirable: Low Risk: Greater than 60 MG/DL 12 LDL INTERPRETATION: Low Risk Optimal Level: LDL Less than 100 MG/DL Near or Above Optimal: LDL 100-129 MG/DL Borderline High Risk: LDL 130-159 MG/DL High Risk: LDL 160-189 MG/DL Very High Risk: LDL Greater than 189 MG/DL 13 Anion gap measurement may be of limited value in the presence of any alkalosis, especially in a combined acid base disorder. . 14 A metabolite of Naproxen, O-desmethylnaproxen, has been shown to interfere with the Jendrassik-Ramírez method for measuring total bilirubin. Samples from patients who have taken Naproxen have shown spurious elevation in total bilirubin levels. 15 Because ethnic data is not always readily [...] 15-29 5 Kidney failure <15 (or dialysis) 16 FAX RESULTS TO [facility] FLORIST MANAGER AT FAX NUMBER [phone] 17 [place] VALUE=2.01 ( OF 05/23/07 Recommended [...] change was based on recommendations from the [place] [employer]. 21 Please note change in reference range effective 07 . Procedures Date Code Description Status 08/20/2018 57159 EKG Tracing & Interpretation Completed 07/03/2018 211008160 Diabetic Retinal Eye Exam Completed 05/14/2017 56676 Exc Tumors/Soft Tissue Neck Subcutaneous Completed 03/06/2017 25944 EKG Tracing & Interpretation Completed 01/24/2017 85174 ECHO Transthoracic, Real-Time 2D With Doppler And Completed Color Flow 01/11/2017 54489 Stress Test Supervsn W/Out I/R Completed 01/11/2017 40005 Treadmill Interp/Report Only Completed 01/01/2017 82154 EKG Tracing & Interpretation Completed 05/27/2015 88958506 Colonoscopy Completed 11/09/2014 62934 EKG Tracing & Interpretation Completed 11/27/2012 60833 EKG Tracing & Interpretation Completed 09/17/2011 45730 EKG Tracing & Interpretation Completed 02/23/2011 36616 ECHO Stress Test Incl Perf Contiuous ekg Monitoring Completed W/Phys Superv 10/12/2010 78965 EKG Tracing & Interpretation Completed 05/18/2009 71546 EKG Tracing & Interpretation Completed 10/12/2008 21269 Treadmill Interp/Report Only Completed 10/12/2008 02634 Stress Test Supervsn W/Out I/R Completed 05/19/2008 55980 ECHO/Stress Completed 05/19/2008 83518 ECHO/Stress Completed 05/19/2008 91711 Stress Test Completed 11/09/2005 19220 EKG, Interpretation Only Completed Encounters Type Date Location Provider Dx Diagnosis Office Visit 06/19/2018 [facility] Internal Saniya Hill, J45.31 Mild persistent 8:30a Medicine - M.D. asthma with (acute) [place] exacerbation J01.90 Acute sinusitis, unspecified Office Visit 01/03/2018 9:40a [facility] Internal Halie Sauceda, M25.551 Pain in Medicine - M.D. 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 neoplm of skin, subcu of head, face and neck Office Visit 03/06/2017 11:20a [facility] Js Hinds I25.10 [facility] Santo Pearson disease of [place] coronary artery w/o ang pctrs R06.00 Dyspnea, unspecified E78.00 Pure hypercholesterolemia, unspecified Z01.810 Encounter for preprocedural cardiovascular examination Office 01/01/2017 [place] Hinds E78.00 Pure Visit 1:20p Cardiology Santo Pearson hypercholesterolemia, unspecified I25.10 [facility] heart disease of [place] coronary artery w/o ang pctrs R06.02 Shortness of breath Office Visit 06/12/2016 3:20p [facility] Internal Christo Elizalde J20.9 Acute bronchitis, Carmel Peraza M.D.,FACP unspecified [place] E78.00 Pure hypercholesterolemia, unspecified Office 11/09/2014 [place] Js Hinds 272.0 Hypercholesterolemia Pure Visit 2:20p Cardiology Nicole Pearson M.D. Before School 414.01 Coronary Atherosclerosis [place] Office 11/27/2012 [place] Js Hinds 272.0 Hypercholesterolemia Pure Visit 11:40a Cardiology Santo Pearson 278.00 Obesity Unspec 414.01 Coronary Atherosclerosis [place] Office 08/28/2012 [facility] Internal Amanda V04.89 Need For Prophylactic Visit 10:20a Carmel Mack N.PJeff Vaccination & [place] Inoculation Other Virus Office 09/17/2011 Giuseppe Hinds 272.0 Hypercholesterolemia Visit 2:00p Cardiology ELIZABETH Pearson M.D. Pure CMC 278.01 Obesity Morbid 414.0 Coronary Atherosclerosis Office 10/12/2010 [place] Js Hinds 272.0 Hypercholesterolemia Pure Visit 9:00a Cardiology Santo Pearson 278.01 Obesity Morbid 786.50 Pain Chest Unspec 414.0 Coronary Atherosclerosis Office Visit 05/18/2009 10:00a [place] Randa Hinds 786.50 Pain Chest Santo Pearson Unspec 272.0 Hypercholesterolemia Pure 278.01 Obesity Morbid 414.0 Coronary Atherosclerosis Office Visit 10/12/2008 11:00a [place] Randa Hinds 786.50 Pain Chest Santo Pearson Unspec 272.0 Hypercholesterolemia Pure 278.01 Obesity Morbid Plan of Treatment Future Appointment(s):08/25/2018 9:20 am - Hermelindo Cuba NP at [facility] Internal Medicine - Wqtqwtfsb41/06/2019 - Js Pearson M.D.E78.5 Hyperlipidemia, unspecifiedFollow up:ov 1 yearR03.0 Elevated blood-pressure reading, without diagnosis of hnuxywJ79.10 Atherosclerotic heart disease of [place] coronary artery withFollow up:ov 1 year
[2018-09-09 09:18] VITALS: BP 138/74
--- NOTE | 2018-09-09 10:01 | UC ---
Nausea/Vomiting/Diarrhea HPI - HPI Summary HPI Summary: PATIENT WAS VISITING THE [facility]. HE RETURNED 8 DAYS AGO ON . THE DAY BEFORE HE RETURNED HOME HE SUDDENLY DEVELOPED WATERY DIARRHEA. HE HAD 2 EPISODES OF EMESIS WITHIN THE FIRST 24 HOURS OF ILLNESS BUT HAS HAD NO REAL NAUSEA OR VOMITING SINCE THEN. PATIENT REPORTS PERSISTENT WATERY DIARRHEA OCCURRING ABOUT EVERY HOUR OR SO. STATES HE HAS HAD 4 EPISODES ALREADY THIS MORNING. HAS CHILLS BUT NO DOCUMENTED FEVER. APPETITE IS DECREASED BUT HE IS TRYING TO STAY HYDRATED HOWEVER HE STATES ANYTHING HE EATS OR DRINKS JUST RUNS RIGHT THROUGH HIM. HAS LEFT TOTAL KNEE REPLACEMENT SCHEDULED FOR NEXT WEEK.NO RECENT ANTIBIOTIC USE. - History of Current Complaint Chief Complaint: UCGI Stated Complaint: DIARRHEA VOMITING Time Seen by Provider: 09/09/18 09:05 Hx Obtained From: Patient Onset/Duration: Sudden Onset, Lasting Days - 8 DAYS, Still Present Severity Initially: Moderate Severity Currently: Moderate Pain Intensity: 3 Pain Scale Used: 0-10 Numeric Character: Not Applicable Aggravating Factor(s): Food Alleviating Factor(s): Nothing Diarrhea Presence: Yes Diarrhea Frequency: Every 1-2 hours Diarrhea Duration: > 7 days Diarrhea Characteristics: Watery - Allergies/Home Medications Allergies/Adverse Reactions: Allergies Allergy/AdvReac Type Severity Reaction Status Date / Time ezetimibe [From Vytorin] Allergy Unknown Verified 09/09/18 09:11 Reaction Details simvastatin [From Vytorin] Allergy Unknown Verified 09/09/18 09:11 Reaction Details Home Medications: Home Medications Tadalafil [Cialis] 5 mg PO DAILY 09/09/18 [History Confirmed 09/09/18] PMH/Surg Hx/FS Hx/Imm Hx Respiratory History: Asthma Other Cancer History: SKIN CANCER - Surgical History Surgical History: Yes Surgery Procedure, Year, and Place: Left shoulder reconstruction, right ankle reconstruction, right shoulder scope, Right knee ACL repair. T&A. left knee - Family History Known Family History: Positive: Cardiac Disease Family History: NON CONTRIBUTORY - Social History Alcohol Use: Weekly Alcohol Amount: a glass of wine a few nights per week Substance Use Type: None Smoking Status (MU): Former Smoker Have You Smoked in the Last Year: No Review of Systems All Other Systems Reviewed And Are Negative: Yes Constitutional: Positive: Chills, Fatigue Respiratory: Positive: Negative Cardiovascular: Positive: Negative Gastrointestinal: Positive: Vomiting, Diarrhea, Nausea Genitourinary: Positive: Negative Physical Exam Triage Information Reviewed: Yes Appearance: Well-Appearing, No Pain Distress, Well-Nourished Vital Signs: Initial Vital Signs Temp 98.7 F 09/09/18 09:06 Pulse 81 09/09/18 09:06 Resp 18 09/09/18 09:06 BP 138/74 09/09/18 09:06 Pulse Ox 98 09/09/18 09:06 Vital Signs Reviewed: Yes Eyes: Positive: Conjunctiva Clear ENT: Positive: Hearing grossly normal Neck: Positive: Supple, Nontender, No Lymphadenopathy Respiratory Exam: Normal Cardiovascular Exam: Normal Abdomen Description: Positive: Nontender, Soft. Negative: CVA Tenderness (R), CVA Tenderness (L), Distended, Guarding Bowel Sounds: Positive: Present Musculoskeletal: Positive: No Edema Neurological: Positive: Alert Psychological: Positive: Age Appropriate Behavior Skin: Negative: Rashes Naus/Vom/Diarrhea Course/Dx - Course Course Of Treatment: PATIENT WITH 8 DAYS OF WATERY DIARRHEA THAT BEGAN ON HIS LAST DAY OF TRAVEL IN THE [facility] [place]. HEALTH DEPARTMENT NOTIFIED AND ADVISED US THAT THERE HAS BEEN A RECENT OUTBREAK OF E. COLI IN THAT AREA. GIVEN PATIENT'S PROTRACTED COURSE OF ILLNESS AND THE NUMBER OF STOOLS HE IS HAVING PER DAY WILL TREAT EMPIRICALLY WITH CIPRO TWICE DAILY FOR 5 DAYS. ZOFRAN FOR NAUSEA ALTHOUGH PATIENT REPORTS THIS HAS NOT BEEN A PROMINENT FEATURE OF HIS ILLNESS. STOOL SENT FOR TESTING. ENCOURAGED TO STAY HYDRATED AND FOLLOW A BLAND DIET FOR NOW. PATIENT IS SCHEDULED FOR LEFT TOTAL KNEE REPLACEMENT IN 1 WEEK. HE WILL DISCUSS WITH HIS SURGICAL TEAM TODAY. - Differential Dx/Diagnosis Provider Diagnosis: Travelers' diarrhea Condition At Discharge: Stable Discharge - Sign-Out/Discharge Documenting (check all that apply): Patient Departure All imaging exams completed and their final reports reviewed: No Studies - Discharge Plan Condition: Stable Disposition: HOME Prescriptions: Ciprofloxacin TAB* [Cipro 500 MG TAB*] 500 mg PO BID #10 tab Ondansetron ODT TAB* [Zofran Odt TAB*] 4 mg PO Q6H PRN #20 tab.odt PRN Reason: Nausea/Vomiting Patient Education Materials: Traveler's Diarrhea (ED) Referrals: Halie Sauceda MD [Primary Care Provider] - If Needed Additional Instructions: ENSURE ADEQUATE HYDRATION. CLEAR LIQUIDS, BLAND DIET. AVOID CAFFEINE, DAIRY, GREASY, SPICY FOODS. NO ALCOHOL. ONCE YOU ARE TOLERATING CLEAR LIQUIDS YOU CAN ADVANCE TO SIMPLE, BLAND FOODS. WE WILL COVER YOU EMPIRICALLY WITH ANTIBIOTICS GIVEN YOUR PROTRACTED COURSE OF ILLNESS AND NUMBER OF STOOLS PER DAY. STOOL SAMPLE SENT OR TESTING. WE WILL CALL YOU IF ANY ABNORMAL RESULTS. GO TO THE [facility] WITHOUT FAIL if vomiting increases or blood appears in the bowel movement or vomitus; if you fail to improve, or if signs of dehydration occur (tongue and mouth become dry, lethargy). - Billing Disposition and Condition Condition: STABLE Disposition: Home
--- NOTE | 2018-09-11 07:51 | UC ---
- Progress Note Progress Note: Stool cultures are negative. If still having diarrhea recommend following up with primary care physician or seeing a narrative writer. Course/Dx - Diagnoses Provider Diagnoses: Travelers' diarrhea Discharge - Sign-Out/Discharge Documenting (check all that apply): Post-Discharge Follow Up All imaging exams completed and their final reports reviewed: No Studies - Discharge Plan Condition: Stable Disposition: HOME Prescriptions: Ciprofloxacin TAB* [Cipro 500 MG TAB*] 500 mg PO BID #10 tab Ondansetron ODT TAB* [Zofran Odt TAB*] 4 mg PO Q6H PRN #20 tab.odt PRN Reason: Nausea/Vomiting Patient Education Materials: Traveler's Diarrhea (ED) Referrals: Halie Sauceda MD [Primary Care Provider] - If Needed Additional Instructions: ENSURE ADEQUATE HYDRATION. CLEAR LIQUIDS, BLAND DIET. AVOID CAFFEINE, DAIRY, GREASY, SPICY FOODS. NO ALCOHOL. ONCE YOU ARE TOLERATING CLEAR LIQUIDS YOU CAN ADVANCE TO SIMPLE, BLAND FOODS. WE WILL COVER YOU EMPIRICALLY WITH ANTIBIOTICS GIVEN YOUR PROTRACTED COURSE OF ILLNESS AND NUMBER OF STOOLS PER DAY. STOOL SAMPLE SENT OR TESTING. WE WILL CALL YOU IF ANY ABNORMAL RESULTS. [place] [facility] [place] if vomiting increases or blood appears in the bowel movement or vomitus; if you fail to improve, or if signs of dehydration occur (tongue and mouth become dry, lethargy). - Billing Disposition and Condition Condition: STABLE Disposition: Home
== END 2018-09-09 10:15 | disposition home or self-care (01) ==
LOC: UCEAST 08:58
DX: R19.7 Diarrhea, unspecified (principal); R11.0 Nausea; J45.909 Unspecified asthma, uncomplicated; Z87.891 Personal history of nicotine dependence; Z88.8 Allergy status to other drugs, medicaments and biological substances
CPT/HCPCS: 83630; 87045; 87046; 87328; 87329; 87493; 87899; 99212; G0463

== ENCOUNTER 2019-01-14 06:58 | Day surgery (SDC) | payer MEDICARE, BC ==
[~2019-01-14 06:58] MED LIST: Acetaminophen TAB* 325 MG PO PRN; Buffered Lidocaine 1% SYRIN* 1 ML/SYRINGE INTRADERM ONE
[2019-01-14] MEDS ORDERED: Phenylephrine OPHTH SOL 2.5%* 2 ML ONE (08:22)
[2019-01-14] MEDS ORDERED: Cyclopentolate 1% OPTH.SOL* 2 ML BTL ONE (08:22)
[2019-01-14] MEDS ORDERED: Neomycin/Polymy/Dex OPTH.SUSP* MAXITROL 0.1% 5 ML ONE (08:22)
[2019-01-14] MEDS ORDERED: Lidocaine 2% w/ EPI 1:200,000* 20 ML SDV VIAL ONE (08:22)
[2019-01-14] MEDS ORDERED: Lidocaine 1% MPF ** 5 ML VIAL ONE (08:22)
[2019-01-14] MEDS ORDERED: Ketorolac 0.5% OPHTH (NF) 0.5 % 5 ML BTL ONE (08:22)
[2019-01-14] MEDS ORDERED: Proparacaine 0.5% OPHTH.SOL* 15 ML BTL ONE (08:22)
[2019-01-14] MEDS ORDERED: acetaZOLAMIDE TAB* 250 MG ONE (08:22)
[2019-01-14] MEDS ORDERED: Povidone Iodine 5% OPTH* 30 ML BTL ONE (08:22)
[2019-01-14] MEDS ORDERED: Midazolam* 1 MG/ML 2 ML VIAL (2 MG) ONE (09:06)
--- NOTE | 2019-01-14 09:50 | OP ---
DATE OF OPERATION: 01/14/19 [facility] DATE OF : 46 SURGEON: Naren Munoz M.D. PREOPERATIVE DIAGNOSIS: Cataract, right eye. POSTOPERATIVE DIAGNOSIS: Cataract, right eye. OPERATIVE PROCEDURE: Extracapsular cataract extraction with intraocular lens implant, right eye. DESCRIPTION OF PROCEDURE: The patient was brought to the operating room after being given 1/2% Alcaine with epinephrine drops in the preoperative area. The eye was prepped and draped in the usual sterile fashion. Sterile drape and eyelid speculum were placed. Again, topical 1/2% Alcaine with epinephrine was given. A paracentesis incision was made at the 9 o'clock position with the No.75 blade. Clear cornea incision 2.2 x 2.2-mm was created at the 12 o'clock position starting at the anterior limbus using the 2.2-mm keratome. The anterior chamber was irrigated with 0.4 mL of 1% non-preservative intracameral lidocaine and filled with DisCoVisc. A capsulorrhexis was completed using the cystotome and the Utrata forceps. Hydrodissection was performed with balanced salt solution. The lens nucleus was removed with the Phacoemulsification handpiece without incident. Cortex was removed with the irrigation-aspiration handpiece. The capsular bag was re-inflated using DisCoVisc and an [id number] implant was inserted with the shooter. The irrigation-aspiration handpiece was used to remove all residual DisCoVisc. The eye was refilled with balanced salt solution and the wound checked and found to be watertight. Topical Maxitrol drops were given. [id number]/[facility] #: [id number] [facility]
[2019-01-14 09:55] VITALS: BP 134/59
== END 2019-01-14 09:44 | disposition home or self-care (01) ==
LOC: OREAST 06:58
PROVIDERS: ATTEND Specialist
DX: H25.811 Combined forms of age-related cataract, right eye (principal); Z87.891 Personal history of nicotine dependence; J45.909 Unspecified asthma, uncomplicated; E78.00 Pure hypercholesterolemia, unspecified
CPT/HCPCS: A9270-GY; J2250; V2788